=== PATIENT | male | born 1990 | race Caucasian/White ===

== ENCOUNTER 2021-07-10 08:57 | Emergency (ER) | payer OTHER ==
[~2021-07-10] VITALS: Ht 177.8 cm; Wt 72.0 kg
[2021-07-10 09:15] VITALS: BP 110/67
--- NOTE | 2021-07-10 12:29 | NUR ---
WHIRLEY OPERATOR: CALLED NO ANSWER
--- NOTE | 2021-07-10 13:16 | NUR ---
PT CALLED, NOT IN LOBBY
--- NOTE | 2021-07-10 14:11 | NUR ---
INSURANCE CLAIMS SPECIALIST: CALLED PATIENT FROM LOBBY NO ANSWER
== END 2021-07-10 14:12 | disposition left against medical advice (07) ==
LOC: ED 14:06
DX: R19.7 Diarrhea, unspecified (principal); R52 Pain, unspecified; Z53.21 Procedure and treatment not carried out due to patient leaving prior to being seen by health care provider